=== PATIENT | male | born 1975 | race Caucasian/White ===

== ENCOUNTER 2025-01-22 06:28 | Day surgery (SDC) | payer BC, SELFPAY ==
[2025-01-22] VITALS (7 sets, daily range): BP systolic 110–116; BP diastolic 75–87; BMI 26.2
[2025-01-22] MEDS: TYLENOL 1000 MG PO (09:45)
[2025-01-22] MEDS: NORMOSOL-R/PLASMALYTE-A 1000 IV (09:46)
== END 2025-01-22 12:35 | disposition home or self-care (01) ==
LOC: SDS 06:28
PROVIDERS: ATTENDING PHYSICIAN Otolaryngology
DX: J34.3 Hypertrophy of nasal turbinates (principal); J34.2 Deviated nasal septum
CPT/HCPCS: 30140; 30520